=== PATIENT | male | born 1930 | race Hispanic/Latino ===

== ENCOUNTER 2019-04-29 12:07 | Emergency (ER) | payer OTHER ==
[~2019-04-29] VITALS: Ht 154.9 cm; Wt 92.1 kg
== END 2019-04-29 13:13 | disposition home or self-care (01) ==
LOC: ER 12:07
DX: S51.811A Laceration without foreign body of right forearm, initial encounter (principal); W18.30XA Fall on same level, unspecified, initial encounter; Y92.008 Other place in unspecified non-institutional (private) residence as the place of occurrence of the external cause
CPT/HCPCS: 99283